=== PATIENT | male | born 1965 | race African-American/Black ===

== ENCOUNTER 2016-08-23 09:20 | Emergency (ER) | payer OTHER ==
[~2016-08-23] VITALS: Ht 188 cm; Wt 90.7 kg
[2016-08-23] MEDS ORDERED: IBUPROFEN600 MG ORAL (10:58)
[2016-08-23] MEDS ORDERED: ROBAXIN-750750 MG PO (10:58)
[2016-08-23] MEDS ORDERED: Oxycodone/Acetaminophen 5-325 ORAL ONE (11:00)
[2016-08-23 11:13] VITALS: BP 154/98
[2016-08-23 11:14] VITALS: BP 154/98
[2016-08-23] MEDS ORDERED: Ketorolac 60mg Inj IM ONE (11:15)
--- NOTE | 2016-08-23 11:26 | Emergency Room Report ---
History of Present Illness General Chief Complaint: Pain Source: Patient Present Illness HPI [id number] came by EMS with right sided lower back pain radiating to right foot s/p "biking for long time" this past weekend. Didnt take anything for pain. Denies lower extremity weakness, urinary retention, history of cancer, IVDU. Allergies: Coded Allergies: No Known Allergies (Unverified , 08/23/16) Patient History Past Medical History: none Past Surgical History: none Pertinent Family History: none Social History: Denies: alcohol use, drug use, smoking Reviewed Nursing Documentation: PMH: Agreed, PSxH: Agreed Nursing Documentation-PMH Past Medical History: No Stated History Review of Systems All Other Systems: negative except mentioned in HPI Physical Exam Vital Signs Date Time Temp Pulse Resp B/P Pulse Ox O2 Delivery O2 Flow Rate FiO2 08/23/16 09:00 98.2 70 16 160/100 99 Room Air Sp02 EP Interpretation: reviewed, normal General Appearance: normal inspection, well appearing, no apparent distress, alert Head: normocephalic, atraumatic Eyes: bilateral eye EOMI, bilateral eye PERRL ENT: normal ENT inspection, hearing grossly normal, normal voice Neck: normal inspection, full range of motion, supple, no bony tend Respiratory: normal inspection, lungs clear, normal breath sounds, no respiratory distress, no retraction, no wheezing Cardiovascular #1: regular rate, rhythm, no edema Gastrointestinal: normal inspection, normal bowel sounds, non tender, soft, no guarding, no hernia Genitourinary: no CVA tenderness Musculoskeletal: normal inspection, back normal, normal range of motion, Daya' s Sign negative, other - Mild right lower back paravertebral ttp. Negative straight leg raise test Neurologic: normal inspection, alert, oriented x3, responsive, chain mender III-XII nml as tested, motor strength/tone normal, speech normal Psychiatric: normal inspection Skin: normal inspection, normal color, no rash Medical Decision Making Diagnostic Impression: Primary Impression: Pain ER Course A: low suspicion for cord compression given well appearance, right paravertebral ttp, no focal neuro deficits, absence of midline ttp/masses and pain worse with movement with known exacerbating activity Rx robaxin, ibuprofen PMD followup Last Vital Signs Date Time Temp Pulse Resp B/P Pulse Ox O2 Delivery O2 Flow Rate FiO2 08/23/16 11:14 98.1 74 15 154/98 98 Room Air Status: improved Disposition: HOME, SELF-CARE Condition: Improved Scripts Ibuprofen* (MOTRIN*) 600 Mg Tablet 600 MG ORAL THREE TIMES A DAY for 7 Days, #30 TAB 0 Refills Prov: VALERIANO IRIZARRY M.D. 08/23/16 Methocarbamol* (ROBAXIN-750*) 750 Mg Tablet 750 MG PO TID for 7 Days, #30 TAB 0 Refills Prov: VALREIANO IRIZARRY M.D. 08/23/16 Referrals: [facility],REFERRING (PCP) Patient Instructions: Back Pain, Adult, [id number] VALERIANO IRIZARRY M.D. Aug 23, 2016 11:26
== END 2016-08-23 11:35 | disposition home or self-care (01) ==
LOC: EDBD 09:20 → EMR 10:57
DX: M54.5 Low back pain (principal); M79.671 Pain in right foot
CPT/HCPCS: 96372; 99284

== ENCOUNTER 2018-01-01 15:33 | Emergency (ER) | payer OTHER ==
[~2018-01-01] VITALS: Ht 193 cm; Wt 90.7 kg
[~2018-01-01 15:33] MED LIST: IBUPROFEN600 MG ORAL; ROBAXIN-750750 MG PO
[2018-01-01 15:45] VITALS: BP 106/64
[2018-01-01] MEDS ORDERED: Norco 5mg/325mg tab ORAL ONE (15:45)
[2018-01-01 16:14] LABS: ANION GAP 11 mmol/L (5-15); BLOOD UREA NITROGEN 15 mg/dL (7-18); CALCIUM 8.6 MG/DL (8.5-10.1); CARBON DIOXIDE 25 MMOL/L (21-32); CHLORIDE 105 MMOL/L (98-107); CREATININE 0.9 MG/DL (0.55-1.30); POTASSIUM 3.6 MMOL/L (3.5-5.1); SODIUM 141 MMOL/L (136-145)
[2018-01-01 16:19] LABS: ALANINE AMINOTRANSFERASE 18 U/L (12-78); ALBUMIN 3.4 G/DL (3.4-5.0); ALBUMIN/GLOBULIN RATIO 1.1 (1.0-2.7); ALKALINE PHOSPHATASE 44 U/L (46-116); ASPARTATE AMINO TRANSFERASE 21 U/L (15-37); BILIRUBIN,TOTAL 0.4 MG/DL (0.2-1.0)
[2018-01-01 16:24] LABS: EOSINOPHILS % (AUTO) 2.7 % (0.0-3.0); HEMATOCRIT 36.4 % (42.0-52.0); HEMOGLOBIN 13.2 G/DL (14.2-18.0); LYMPHOCYTES % (AUTO) 30.3 % (20.0-45.0); MEAN CORPUSCULAR VOLUME 95 FL (80-99); MONOCYTES % (AUTO) 6.7 % (1.0-10.0); NEUTROPHILS % (AUTO) 59.3 % (45.0-75.0); PLATELET COUNT 235 K/UL (150-450); RED BLOOD COUNT 3.83 M/UL (4.70-6.10); RED CELL DISTRIBUTION WIDTH 10.7 % (11.6-14.8); WHITE BLOOD COUNT 6.2 K/UL (4.8-10.8)
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
[2018-01-01] MEDS ORDERED: Tetanus/Diptheria/Pertussis Vaccine 0.5ml Syr IM ONE (17:15)
[2018-01-01 17:46] VITALS: BP 110/77
[2018-01-01 17:50] LABS: APPEARANCE,URINE CLEAR; BILIRUBIN, URINE NEGATIVE (NEGATIVE); GLUCOSE, URINE (UA) NEGATIVE (NEGATIVE); KETONES,URINE NEGATIVE (NEGATIVE); LEUKOCYTE ESTERASE ,URINE 1+ (NEGATIVE); NITRITE,URINE NEGATIVE (NEGATIVE); PH,URINE 5 (4.5-8.0); PROTEIN,URINE 1+ (NEGATIVE); UROBILINOGEN,URINE 1 MG/DL (0.0-1.0)
[2018-01-01 17:55] LABS: COLOR,URINE YELLOW
[2018-01-01] MEDS ORDERED: Ketorolac 30mg Inj IV ONE (18:30)
[2018-01-01] MEDS ORDERED: IBUPROFEN800 MG ORAL (18:49)
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
[2018-01-01 19:38] VITALS: BP 115/76
[2018-01-01 21:45] VITALS: BP 114/79
[2018-01-01 23:45] VITALS: BP 124/80
[2018-01-02 01:25] VITALS: BP 120/72
[2018-01-02 02:49] VITALS: BP 120/72
--- NOTE | 2018-01-02 13:34 | Diagnostic Imaging Report ---
Indication: Right hand pain Findings: 3 views of the right hand were obtained. Normal bony mineralization and alignment are demonstrated. No acute fractures, erosions, or periosteal reaction are seen. Soft tissues are unremarkable. There is an old fracture of the fifth metacarpal. Impression: No acute findings.
== END 2018-01-02 02:49 | disposition home or self-care (01) ==
LOC: EDBD 15:33 → EMR 16:08 → EDBEDREQ 01-02 00:24 → EMR 01-02 02:49
DX: S63.502A Unspecified sprain of left wrist, initial encounter (principal); S00.83XA Contusion of other part of head, initial encounter; S01.21XA Laceration without foreign body of nose, initial encounter; V79.3XXA Bus occupant (driver) (passenger) injured in unspecified nontraffic accident, initial encounter; Y93.89 Activity, other specified; Y92.410 Unspecified street and highway as the place of occurrence of the external cause; Z23 Encounter for immunization
CPT/HCPCS: 36415; 70450; 70486; 73090; 73110; 73130; 80053; 80307; 80329; 81003; 85025; 85610; 85730; 90471; 90715; 96361; 96374; 99284; J1885